=== PATIENT | female | born 1985 | race Caucasian/White ===

== ENCOUNTER 2016-11-28 14:10 | Inpatient (IN) | payer MEDICAID ==
[~2016-11-28] VITALS: Ht 149.9 cm; Wt 59.4 kg
[2016-11-28] MEDS ORDERED: LORazepam 2 MG TABLET PO PRN (15:15)
[2016-11-28] MEDS ORDERED: MAG HYDROX/AL HYDROX/SIMETH ES 30 ML SUSPENSION UDCUP PO PRN (15:15)
[2016-11-28] MEDS ORDERED: ACETAMINOPHEN 325 MG TABLET PO PRN (15:15)
[2016-11-28] MEDS ORDERED: OLANZapine 5 MG RAPDIS TABLET PO PRN (15:15)
[2016-11-28] MEDS ORDERED: LOPERAMIDE HCL 2 MG CAPSULE PO PRN (15:15)
[2016-11-28] MEDS ORDERED: MAGNESIUM HYDROXIDE SUSPENSION 30 ML UDCUP PO PRN (15:15)
[2016-11-28] MEDS ORDERED: ZOLPIDEM TARTRATE 10 MG TABLET PO PRN (15:15)
[2016-11-28 15:16] LABS: ANION GAP 7 mmol/L (8-16); CALCIUM, TOTAL 8.7 mg/dL (8.8-10.5); CARBON DIOXIDE 30 mmol/L (22-29); CHLORIDE 103 mmol/L (98-107); CREATININE 0.71 mg/dL (0.60-1.30); GLOMERULAR FILTR. RATE CALC > 60 mL/min (>60); POTASSIUM 3.9 mmol/L (3.5-5.1); SODIUM SERUM 140 mmol/L (136-145); UREA NITROGEN, BLOOD 11 mg/dL (7-18)
[2016-11-28 15:19] LABS: BASOPHILS % (AUTO) 0.6 % (0.0-2.0); EOSINOPHILS % (AUTO) 1.1 % (1.0-6.0); HEMATOCRIT 44.8 % (36-46); HEMOGLOBIN 14.9 g/dL (12.0-16.0); LYMPHOCYTES # (AUTO) 3.1 K/uL (1.0-4.8); MEAN CORPUSCULAR HEMOGLOBIN 29.3 pg (26.0-34.0); MEAN CORPUSCULAR HGB CONC 33.3 G/dL (31.0-37.0); MEAN CORPUSCULAR VOLUME 88 fL (80-100); MONOCYTES # (AUTO) 0.6 K/uL (0.1-1.0); NEUTROPHILS # (AUTO) 6.8 K/uL (1.8-7.7); NEUTROPHILS % (AUTO) 63.3 % (40.0-70.0); PLATELET COUNT (AUTO) 455 K/uL (150-450); RED CELL DISTRIBUTION WIDTH 13.8 % (11.5-14.5); WHITE BLOOD COUNT (AUTO) 10.7 K/uL (4.5-11.0)
[2016-11-28 15:23] LABS: ALANINE AMINOTRANSFERASE 136 U/L (12-78); ALBUMIN 4.4 g/dL (3.4-5.0); ASPARTATE AMINOTRANSFERASE 58 U/L (15-37); BILIRUBIN,TOTAL 0.3 mg/dL (0.1-1.0); TOTAL PROTEIN, SERUM 8.3 g/dL (6.4-8.2)
[2016-11-28] MEDS ORDERED: HALOPERIDOL LACTATE 5 MG/ML VIAL IM ONE (16:15)
[2016-11-28] MEDS ORDERED: DiphenhydrAMINE HCL 50 MG/ML VIAL IM ONE (16:15)
[2016-11-28] MEDS ORDERED: LORazepam 2 MG/ML VIAL IM ONE (16:15)
[2016-11-28] MEDS ORDERED: LORazepam 2 MG/ML VIAL ONE (16:17)
[2016-11-28] MEDS ORDERED: DiphenhydrAMINE HCL 50 MG/ML VIAL ONE (16:17)
[2016-11-28] MEDS ORDERED: HALOPERIDOL LACTATE 5 MG/ML VIAL ONE (16:17)
[2016-11-28 17:03] LABS: APPEARANCE,URINE CLOUDY (CLEAR); GLUCOSE, URINE (UA) NEGATIVE (NEGATIVE); KETONES,URINE NEGATIVE (NEGATIVE); LEUKOCYTE ESTERASE ,URINE SMALL (NEGATIVE); OCCULT BLOOD,URINE NEGATIVE (NEGATIVE); PROTEIN,URINE NEGATIVE (NEGATIVE)
[2016-11-28 17:23] LABS: ADD UA MICROSCOPIC YES
[2016-11-28 17:37] LABS: RBC,URINE None Seen /HPF (0-2)
[2016-11-28 17:38] LABS: SQUAMOUS EPITHELIAL CELL,UR Few /LPF (None Seen)
[2016-11-28 17:45] VITALS: BP 130/90
[2016-11-28] MEDS ORDERED: INFLUENZA VIRUS VACCINE QVS 2016-17 (3YR+)/PF 60 MCG/0.5 ML SYRINGE IM ONE (18:15)
[2016-11-28 20:29] VITALS: BP 114/67
[2016-11-28] MEDS ORDERED: OLANZapine 5 MG RAPDIS TABLET PO SCH (21:00)
[2016-11-28 21:10] VITALS: BP 114/67
[2016-11-28] MEDS ORDERED: COLLOIDAL OATMEAL/DIMETH 227 GM LOTION TP PRN (21:15)
[2016-11-29 08:01] LABS: BASOPHILS # (AUTO) 0.05 K/uL (0.00-0.20); BASOPHILS % (AUTO) 0.8 % (0.0-2.0); EOSINOPHILS # (AUTO) 0.15 K/uL (0.00-0.70); EOSINOPHILS % (AUTO) 2.29 % (1.0-6.0); HEMATOCRIT 39.4 % (36-46); LYMPHOCYTES # (AUTO) 2.8 K/uL (1.0-4.8); LYMPHOCYTES % (AUTO) 42.8 % (22.0-44.0); MEAN CORPUSCULAR VOLUME 88 fL (80-100); MONOCYTES # (AUTO) 0.4 K/uL (0.1-1.0); MONOCYTES % (AUTO) 6.2 % (2.0-9.0); NEUTROPHILS # (AUTO) 3.1 K/uL (1.8-7.7); PLATELET COUNT (AUTO) 399 K/uL (150-450); RED BLOOD CELL COUNT(AUTO) 4.49 MIL/uL (4.00-5.20); RED CELL DISTRIBUTION WIDTH 14.2 % (11.5-14.5); WHITE BLOOD COUNT (AUTO) 6.5 K/uL (4.5-11.0)
[2016-11-29] MEDS: CEPHALEXIN MONOHYDRATE 500 MG CAPSULE PO SCH ×3 (08:17→16:23)
[2016-11-29 08:19] LABS: HEMOGLOBIN A1C 5.4 % (4.5-6.2)
[2016-11-29 08:34] LABS: ALANINE AMINOTRANSFERASE 86 U/L (12-78); ALBUMIN 3.3 g/dL (3.4-5.0); ANION GAP 9 mmol/L (8-16); ASPARTATE AMINOTRANSFERASE 23 U/L (15-37); BILIRUBIN,TOTAL 0.3 mg/dL (0.1-1.0); CALCIUM, TOTAL 8.5 mg/dL (8.8-10.5); CARBON DIOXIDE 26 mmol/L (22-29); CHLORIDE 105 mmol/L (98-107); CHOL/HDL RATIO 2.9 (3.9-5.7); CREATININE 0.64 mg/dL (0.60-1.30); GLOMERULAR FILTR. RATE CALC > 60 mL/min (>60); POTASSIUM 4.3 mmol/L (3.5-5.1); SODIUM SERUM 140 mmol/L (136-145); THYROID STIMULATING HORMONE 1.84 uIU/mL (0.36-3.74); TOTAL PROTEIN, SERUM 6.3 g/dL (6.4-8.2); UREA NITROGEN, BLOOD 17 mg/dL (7-18)
[2016-11-29 08:50] VITALS: BP 128/69
[2016-11-29 10:07] VITALS: BP 118/74
[2016-11-29 16:02] VITALS: BP 108/70
[2016-11-29] MEDS: FERROUS SULFATE 325 MG EC TABLET PO SCH (16:23)
[2016-11-30 06:29] VITALS: BP 128/68
[2016-11-30] MEDS: FERROUS SULFATE 325 MG EC TABLET PO SCH ×2 (06:50→16:26)
[2016-11-30 08:31] VITALS: BP 131/69
[2016-11-30] MEDS: CEPHALEXIN MONOHYDRATE 500 MG CAPSULE PO SCH ×3 (09:53→16:26)
[2016-11-30] MEDS ORDERED: QUEtiapine FUMARATE 100 MG TABLET PO PRN (13:15)
[2016-11-30] MEDS ORDERED: QUET25TA34 PO (13:17)
[2016-11-30] MEDS ORDERED: PREN1TAB37 PO (13:17)
[2016-11-30] MEDS ORDERED: QUET200T29 PO (13:17)
[2016-11-30 16:09] VITALS: BP 125/70
[2016-11-30] MEDS: QUEtiapine FUMARATE 25 MG TABLET PO SCH (16:26)
[2016-11-30] MEDS: THIAMINE HCL 100 MG TABLET PO SCH (16:26)
[2016-11-30] MEDS ORDERED: QUEtiapine FUMARATE 200 MG TABLET PO SCH (21:00)
[2016-12-01 06:29] VITALS: BP 124/65
[2016-12-01] MEDS: FERROUS SULFATE 325 MG EC TABLET PO SCH (06:50)
[2016-12-01 08:21] VITALS: BP 120/79
[2016-12-01] MEDS: QUEtiapine FUMARATE 25 MG TABLET PO SCH ×2 (08:21→12:21)
[2016-12-01] MEDS: CEPHALEXIN MONOHYDRATE 500 MG CAPSULE PO SCH ×2 (08:21→12:21)
[2016-12-01] MEDS: THIAMINE HCL 100 MG TABLET PO SCH (08:21)
[2016-12-01] MEDS ORDERED: FOLIC ACID 1 MG TABLET PO SCH (09:00)
[2016-12-01] MEDS ORDERED: PRENATAL VIT#96/FERROUS FUM/FA TABLET PO SCH (09:00)
[2016-12-01] MEDS ORDERED: PREN1CAP18 PO (13:52)
[2016-12-01] MEDS ORDERED: QUET50TA PO ×2 (13:52)
== END 2016-12-01 15:21 | disposition home or self-care (01) | DRG 885 ==
LOC: EMS 14:14 → EEVIPCON 14:14 → AHU 16:20 → B3A 19:56
PROVIDERS: ADMIT Psychiatry & Neurology Psychiatry; ATTEND Psychiatry & Neurology Psychiatry
DX: F25.0 Schizoaffective disorder, bipolar type (principal); G47.00 Insomnia, unspecified; F43.10 Post-traumatic stress disorder, unspecified; F90.9 Attention-deficit hyperactivity disorder, unspecified type; F12.10 Cannabis abuse, uncomplicated; F17.210 Nicotine dependence, cigarettes, uncomplicated; Z59.0 Homelessness; Z88.2 Allergy status to sulfonamides; Z98.890 Other specified postprocedural states; Z88.8 Allergy status to other drugs, medicaments and biological substances; Z71.51 Drug abuse counseling and surveillance of drug abuser; Z91.19 Patient's noncompliance with other medical treatment and regimen; Z28.21 Immunization not carried out because of patient refusal
CPT/HCPCS: 83036; 84439; 84443; 86592; 87081; 87086; 96372; 99285; G0480; J1200; J1630; J2060